=== PATIENT | male | born 1950 | race Caucasian/White ===

== ENCOUNTER 2019-04-11 18:49 | Emergency (ER) | payer BC, OTHER ==
[2019-04-11 19:18] VITALS: TEMP 97.8; BMI 29.2
--- NOTE | 2019-04-11 19:59 | PDOC ---
History of Present Illness - General Chief Complaint: Edema Stated Complaint: SWELLING TO THE KNEES Time Seen by Provider: 04/11/19 19:53 History Source: Patient Exam Limitations: No Limitations - History of Present Illness Initial Comments: 04/11/19 21:46 Aleksandr Walker is a 68yM w PMHx asthma presenting w bilateral leg edema. Swelling started 3 days ago up to knees, associated leg and joint pain worse with leg extension. Relieved w joint movement. 1st time having leg swelling. Denies recent travel/surgery/hiking/sick contact/trauma. Denies family hx of autoimmune disorders or rheumatoid arthritis. Tried hot/cold massage without relief. Denies fever, nausea/vomiting, SOB, chest/AB pain, urinary / bowel movement changes. Past History - Past Medical History Allergies/Adverse Reactions: Allergies Allergy/AdvReac Type Severity Reaction Status Date / Time No Known Allergies Allergy Verified 04/11/19 19:05 Home Medications: Ambulatory Orders NK [No Known Home Medication] 04/11/19 COPD: No - Psycho Social/Smoking Cessation Hx Smoking History: Never smoked Have you smoked in the past 12 months: No Information on smoking cessation initiated: No Hx Alcohol Use: No Drug/Substance Use Hx: No Review of Systems - Review of Systems Constitutional: No: Chills, Fever HEENTM: No: Eye Pain, Nose Pain, Throat Pain, Mouth Pain Respiratory: No: Cough, Shortness of Breath Cardiac (ROS): No: Chest Pain, Palpitations, Syncope ABD/GI: No: Abdominal Distended, Constipated, Diarrhea, Nausea, Vomiting : No: Burning, Dysuria, Discharge, Frequency, Flank Pain Musculoskeletal: Yes: Joint Pain (judson knees, L ankle), Joint Swelling (judson knees , L ankle). No: Back Pain Integumentary: No: Bruising, Dryness, Erythema Neurological: No: Headache, Seizure, Tingling, Tremors Psychiatric: No: Anxiety, Depression, Stressors Endocrine: No: Excessive Sweating, Flushing, Intolerance to Cold, Intolerance to Heat Hematologic/Lymphatic: No: Anemia, Blood Clots, Easy Bleeding *Physical Exam - Vital Signs Last Vital Signs Temp Pulse Resp BP Pulse Ox 97.8 F 77 16 160/90 100 04/11/19 18:50 04/11/19 18:50 04/11/19 18:50 04/11/19 18:50 04/11/19 18:50 - Physical Exam General Appearance: Yes: Nourished, Appropriately Dressed, Mild Distress HEENT: positive: EOMI, OC, Normal Voice, Hearing Grossly Normal. negative: Scleral Icterus (R), Scleral Icterus (L), Nasal Congestion, Rhinorrhea Respiratory/Chest: positive: Lungs Clear, Normal Breath Sounds. negative: Chest Tender, Respiratory Distress, Crackles, Rhonchi, Stridor, Wheezing Cardiovascular: positive: Regular Rhythm, Regular Rate, S1, S2. negative: Edema , Murmur Vascular Pulses: Dorsalis-Pedis (R): 3+, Doralis-Pedis (L): 3+ Gastrointestinal/Abdominal: positive: Normal Bowel Sounds, Flat, Soft. negative : Tender, Organomegaly, Distended, Guarding Musculoskeletal: negative: CVA Tenderness (R), CVA Tenderness (L) Extremity: positive: Normal Capillary Refill, Swelling (+2 pitting edema up to knees bilaterally L>R. Pain around anterior knees worse w knee flexion. Warm judson knees, L ankle. No open skin wounds/lacerations/rashes). negative: Normal Range of Motion (limited by swelling), Calf Tenderness Integumentary: positive: Normal Color. negative: Erythema, Hives, Petechiae, Rash, Ecchymosis, Bruising Neurologic: positive: Motor Strength 5/5, Responsive. negative: Numbness, Sensory Deficit (normal sensation BLE), Confused, Disoriented ED Treatment Course - LABORATORY CBC & Chemistry Diagram: 04/11/19 20:40 04/11/19 20:40 Medical Decision Making - Medical Decision Making 04/11/19 21:54 CBC CMP ESR CRP BNP Given tylenol, toradol for pain XR L/R knees, L ankle show old distal L fibular fracture, no acute fracture/ dislocation. WBC 14, ESR 86, CRP 12, BNP 1000 Aleksandr Walker is a 68yM w PMHx asthma presenting w 3d bilateral leg edema, judson knee and L ankle warmth likely rheumatoid arthritis (elevated ESR, CRP). Low concern for bilateral DVT (causing swelling), no acute fracture/dislocation seen on XR L/R knees, L ankle. An old distal L fibular fracture was seen. Neurovascular intact. Pt ambulated without assistance. Given toradol and tylenol for pain. D/c home w PCP, ortho, rheumatology referrals for further workup, supportive care instructions. Discharge - Discharge Information Problems reviewed: Yes Clinical Impression/Diagnosis: Leg swelling Condition: Good Disposition: HOME - Admission No - Follow up/Referral Referrals: ANJANA,EB Sofia MD [Staff Physician] - Albert Guevara MD [Staff Physician] - Steven Holt DO [Staff Physician] - - Patient Discharge Instructions Patient Printed Discharge Instructions: DI for Peripheral Edema -- Bilateral Additional Instructions: You were seen for leg swelling. Your labs and imaging showed that you have an inflammatory process. You have an old fracture of your left leg bone. You were given medication for your pain. Please make an appointment to see the referred primary care doctor, orthopedic, and filling separator doctors. You can ice and elevate your legs and take ibuprofen as directed on the packaging to reduce the pain and swelling Come back to the ED if you cannot walk, lose sensation in your legs, or have a fever. - Post Discharge Activity
[2019-04-11] MEDS ORDERED: KETOROLAC TROMETHAMINE 30 MG/1 ML VIAL IVPUSH ONE (20:27)
[2019-04-11] MEDS ORDERED: KETOROLAC TROMETHAMINE 30 MG/1 ML VIAL ONE (20:32)
--- NOTE | 2019-04-11 20:44 | PDOC ---
Attending Attestation - Resident Resident Name: Kristopher Michaud - ED Attending Attestation I have performed the following: I have examined & evaluated the patient, The case was reviewed & discussed with the resident, I agree w/resident's findings & plan, Exceptions are as noted - HPI HPI: 04/11/19 20:43 This 68 yo male p/w bilaeral knee swelling and left ankle swelling for 3 days, He denies any recent trauma 04/11/19 20:51 - Physicial Exam PE: 04/11/19 20:44 wnwd 68 yo male with knee and ankle pain and mild swelling 04/11/19 20:51 68 yo male p/w b/l knee swelling and left ankle tenderness w mild swelling head ncat lungs cta b/l cvs [id number] abd nontender extremities mild bilateral knee tenderness ,no erythema,no wounds,no streaking , mild left ankle swelling neuro axox3 - Medical Decision Making 04/11/19 20:55 diff diag includes RA,sepic joint , GC labs pending 04/11/19 22:54 pt does have elevated inflammatory markers and will be referred to the [facility] and the crime scene specialist Dr Guevara
[2019-04-11 20:58] LABS: BASO % 0.8 % (0-2.0); HEMATOCRIT 42.5 % (35.4-49); HEMOGLOBIN 14.5 GM/dL (11.7-16.9); LYMPH % 7.2 % (8-40); MCH 30.4 pg (25.7-33.7); MCHC 34.2 g/dl (32.0-35.9); MEAN CELL VOLUME 88.9 fl (80-96); MEAN PLT VOLUME 8.1 fl (7.5-11.1); MONO % 10.6 % (3.8-10.2); NEUT % 81.4 % (42.8-82.8); PLATELET COUNT 411 K/MM3 (134-434); RBC 4.78 M/mm3 (4.00-5.60); RDW 13.6 % (11.9-15.9); WHITE BLOOD COUNT 14.4 K/mm3 (4.0-10.0)
[2019-04-11 21:30] LABS: BLOOD UREA NITROGEN 18.5 mg/dL (7-18); CALCIUM 8.7 mg/dL (8.5-10.1); N-TERMINAL BNP 1045.6 pg/ml (5-125); POTASSIUM 4.4 mmol/L (3.5-5.1); TOT PROT 8.9 g/dl (6.4-8.2)
[2019-04-11] MEDS ORDERED: ACETAMINOPHEN 500 MG TABLET (FP) PO ONE (23:03)
[2019-04-11] MEDS ORDERED: ACETAMINOPHEN 325 MG TABLET (FP) ONE (23:42)
[2019-04-11 23:49] VITALS: BP 163/91; PULSE 63
== END 2019-04-11 23:49 | disposition home or self-care (01) ==
LOC: JER 18:49
PROC: 3E0333Z Introduction of Anti-inflammatory into Peripheral Vein, Percutaneous Approach (ICD-10-PCS; principal; 2019-04-11)
DX: M79.89 Other specified soft tissue disorders (principal); R60.0 Localized edema
CPT/HCPCS: 36415; 73562-TC-LT-FY; 73562-TC-RT-FY; 73610-TC-LT-FY; 73630-TC-LT; 80053; 83880; 85025; 85651; 86140; 99283-25

== ENCOUNTER 2022-10-11 09:12 | Emergency (ER) | payer BC, OTHER ==
[2022-10-11 09:18] VITALS: BP 174/86; PULSE 63; RESP 18; TEMP 98; BMI 34.8
== END 2022-10-11 11:57 | disposition home or self-care (01) ==
LOC: JERFT 09:12
DX: H61.23 Impacted cerumen, bilateral (principal)
CPT/HCPCS: 99282-25